=== PATIENT | female | born 1975 | race Caucasian/White ===

== ENCOUNTER → 2020-04-08 | Outpatient (CLI) | payer OTHER ==
[2020-04-09 15:03] LABS: RUBELLA AB IGG-REFLAB See Separate Report.
== END | disposition home or self-care (01) ==
LOC: LABMN 15:05
PROVIDERS: ATTEND Internal Medicine
DX: Z02.1 Encounter for pre-employment examination (principal); R76.11 Nonspecific reaction to tuberculin skin test without active tuberculosis
CPT/HCPCS: 86706; 86735; 86762; 86765; 86787; 36415-L1; 36415-TC; 71045-TC